=== PATIENT | female | born 1980 ===

== ENCOUNTER 2024-08-20 09:30 | Emergency (ER) | payer OTHER ==
[2024-08-20] MEDS ORDERED: NA CHLORIDE 0.9% 1,000 ML ONE (10:38)
--- NOTE | 2024-08-20 10:42 | RAD REPORT ---
Transvaginal Study Probe CLINICAL INDICATION: Female 43 years old ABD PAIN TECHNIQUE: Real-time ultrasonography of the pelvis was performed transvaginally. Color and spectral D oppler evaluation of the ovaries was performed. [id number]. COMPARISON: No prior exam. FINDINGS: UTERUS AND CERVIX: The uterus measures 7.9 x 3.7 x 4.9 cm (cervix to fundus x AP x transverse). The u terus is normal. No suspicious masses seen . Nabothian cysts noted, the largest 1.3 cm. IUD present in the expected location in the upper uterine canal. The endometrium is normal,5 mm thickness. RIGHT OVARY: Normal The right ovary measures 2.5 x 2 x 1.6 cm with volume of 4 mL. Normal color and s pectral Doppler evaluation of the right ovary.. LEFT OVARY: Normal The left ovary measures 1.9 x 1.4 x 1.5 cm with volume of 2.2 mL. Normal Color a nd spectral Doppler evaluation of the left ovary.. FREE FLUID: No free fluid. IMPRESSION: 1. IUD. 2. Bilateral ovarian blood flow.
[2024-08-20 11:08] LABS: Specific Gravity < 1.005 (1.005-1.030); Urine Bilirubin NEGATIVE (Negative); Urine Blood Negative (Negative); Urine Clarity Clear (Clear); Urine Color Colorless (Yellow); Urine Glucose NEGATIVE (Negative); Urine Ketones NEGATIVE (Negative); Urine Microscopic Reflex YN NO UMIC; Urine Nitrite NEGATIVE (Negative); Urine Protein NEGATIVE (Negative); Urine Urobilinogen Normal (Normal)
[2024-08-20 11:09] LABS: Absolute Basophils 0.1 K/uL (0-0.5); Absolute Eosinophils 0.3 K/uL (0-0.5); Absolute Lymphocytes (CBC) 2.2 K/uL (0.7-4.9); Absolute Monocytes 0.6 K/uL (0.1-1.3); Absolute Neutrophil 4.9 K/uL (1.8-8.0); Basophils % 0.7 % (0-1.3); Eosinophils % 3.2 % (0-4.4); Hematocrit 43.7 % (36.0-45.0); Hemoglobin 15.1 g/dL (12.0-15.0); Lymphocytes % 27.6 % (15.3-44.8); MCH 28.9 pg (27.0-35.0); MCHC 34.5 g/dL (32.0-36.0); MCV 83.9 fL (80-100); MPV 9.2 fL (7.6-11.3); Monocytes % 7.3 % (3.3-12.3); Neutrophils % 61.2 % (41.7-73.7); Nucleated Red Blood Cells % 0.2 % (0-0); Platelets 221 thou/uL (152-406); RBC Red Blood Cell Count 5.21 M/uL (3.86-4.86); Red Cell Distribution Width 14.1 % (12.1-15.2)
[2024-08-20 11:29] LABS: Anion Gap 9.6 mEq/L (5.0-15.0); Bilirubin Total 0.7 mg/dL (0.2-1.0); Potassium 3.6 mEq/L (3.5-5.1)
[2024-08-20 11:30] LABS: Albumin 3.9 g/dL (3.4-5.0); Protein, Total 7.9 g/dL (6.4-8.2)
--- NOTE | 2024-08-20 13:05 | RAD REPORT ---
EXAMINATION: Abdomen Pelvis W Contrast CLINICAL INDICATION: Female, 43 years old.ABD PAIN TECHNIQUE: CT abdomen and pelvis was performed, after the administration of IV contrast, [facility] Axial, sagittal and coronal reconstructions were obtained. One or more of the following dose reduction techniques were used: Automated exposure control, adjustment of the mA and/o r kV according to patient size, and/or iterative reconstruction. Unless otherwise specified, incidental findings do not require dedicated imaging follow-up. [id number]. COMPARISON: No prior exam. FINDINGS: LOWER CHEST: No acute process identified.No significant pericardial effusion. UPPER GI: No significant abnormality. LIVER: Several low-density liver lesions are noted which have benign imaging features and do not requ lorenzo specific follow-up. GALLBLADDER/BILE DUCTS: No biliary ductal dilatation.? PANCREAS: No mass, ductal dilation, or alisia-pancreatic fluid. SPLEEN: Unremarkable. ADRENALS: No adrenal masses. KIDNEYS AND URETERS: No hydronephrosis.No suspicious renal mass.No renal calculi.No ureteral calculi. ABDOMINAL AORTA AND OTHER VESSELS: Normal caliber aorta and IVC. PERITONEUM: No abnormal free fluid. No free air. LYMPH NODES: No pathologic lymphadenopathy. ABDOMINAL WALL: Unremarkable SMALL BOWEL/COLON: Small bowel has normal course and caliber. No colonic wall thickening or pericolon ic inflammatory changes.Normal appendix. URINARY BLADDER: Underdistended but grossly unremarkable. REPRODUCTIVE ORGANS: No pathologic process. IUD. 8 mm left ovarian lesion likely a small corpus lutea l cyst of no significance. MUSCULOSKELETAL: No acute or suspicious osseous abnormality. ADDITIONAL FINDINGS: None. IMPRESSION: No acute findings within the abdomen or pelvis. No appendicitis. No urinary tract calculi identified. No findings to explain left lower quadrant pain.
--- NOTE | 2024-08-20 13:33 | EDPHYS ---
Physician Documentation [facility] Name: Janie Genao Age: 43 yrs Sex: Female : 1980 Arrival Date: 08/20/2024 Time: 09:30 Bed 2 Private MD: Jaret Navarrete HPI: 08/20 10:40 This 43 yrs old Unknown Female presents to ER via Ambulatory with complaints of stefano Abdominal Pain - LT LOWER. 10:40 The patient presents with abdominal pain in the lower abdomen, in the left lower stefano quadrant. Onset: The symptoms/episode began/occurred 3 week(s) ago. The patient presents with urinary symptoms, frequency. Onset: The symptoms/episode began/occurred 14 day(s) ago. Modifying factors: The symptoms are alleviated by remaining still, the symptoms are aggravated by movement, pressure. Associated signs and symptoms: Pertinent positives: cramping, dysuria. Severity of symptoms: At their worst the symptoms were moderate, in the emergency department the symptoms are unchanged. The patient is sexually active, reportedly has a single partner. 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 - Infectious Disease History:: Denies. - Social history:: Smoking status: unknown. ROS: 10:42 Constitutional: Negative for fever, chills, and weight loss, Eyes: Negative for injury, stefano pain, redness, and discharge, ENT: Negative for injury, pain, and discharge, Neck: Negative for injury, pain, and swelling, Cardiovascular: Negative for chest pain, palpitations, and edema, Respiratory: Negative for shortness of breath, cough, wheezing, and pleuritic chest pain, Back: Negative for injury and pain, : Negative for injury, bleeding, discharge, and swelling, MS/Extremity: Negative for injury and deformity, Skin: Negative for injury, rash, and discoloration, Neuro: Negative for headache, weakness, numbness, tingling, and seizure, Psych: Negative for depression, anxiety, suicide ideation, homicidal ideation, and hallucinations, Allergy/Immunology: Negative for hives, rash, and allergies, Endocrine: Negative for neck swelling, polydipsia, polyuria, polyphagia, and marked weight changes, Hematologic/Lymphatic: Negative for swollen nodes, abnormal bleeding, and unusual bruising, 10:42 Abdomen/GI: Positive for abdominal pain, of the left lower quadrant, Exam: 10:42 Constitutional: This is a well developed, well nourished patient who is awake, alert, stefano and in no acute distress. Head/Face: Normocephalic, atraumatic. Eyes: Pupils equal round and reactive to light, extra-ocular motions intact. Lids and lashes normal. Conjunctiva and sclera are non-icteric and not injected. Cornea within normal limits. Periorbital areas with no swelling, redness, or edema. ENT: Nares patent. No nasal discharge, no septal abnormalities noted. Tympanic membranes are normal and external auditory canals are clear. Oropharynx with no redness, swelling, or masses, exudates, or evidence of obstruction, uvula midline. Mucous membranes moist. Neck: Trachea midline, no thyromegaly or masses palpated, and no cervical lymphadenopathy. Supple, full range of motion without nuchal rigidity, or vertebral point tenderness. No Meningismus. Chest/axilla: Normal chest wall appearance and motion. Nontender with no deformity. No lesions are appreciated. Cardiovascular: Regular rate and rhythm with a normal S1 and S2. No gallops, murmurs, or rubs. Normal PMI, no JVD. No pulse deficits. Respiratory: Lungs have equal breath sounds bilaterally, clear to auscultation and percussion. No rales, rhonchi or wheezes noted. No increased work of breathing, no retractions or nasal flaring. Back: No spinal tenderness. No costovertebral tenderness. Full range of motion. Skin: Warm, dry with normal turgor. Normal color with no rashes, no lesions, and no evidence of cellulitis. MS/ Extremity: Pulses equal, no cyanosis. Neurovascular intact. Full, normal range of motion., bilateral aka Neuro: Awake and alert, GCS 15, oriented to person, place, time, and situation. Cranial nerves II-XII grossly intact. Motor strength 5/5 in all extremities. Sensory grossly intact. Cerebellar exam normal. Normal gait. Psych: Awake, alert, with orientation to person, place and time. Behavior, mood, and affect are within normal limits. 10:42 Abdomen/GI: Inspection: abdomen appears normal, Bowel sounds: normal, Palpation: mild abdominal tenderness, in the left lower quadrant, Liver: no appreciated palpable abnormalities, Hernia: not appreciated, Vital Signs: 10:34 BP 114 / 71; Pulse 69; Resp 16; Temp 97.6(O); Pulse Ox 100% on R/A; Weight 64.41 kg; cm10 Height 5 ft. 9 in. ; Pain 2/10; 11:00 BP 106 / 67; Pulse 60; Resp 16; Pulse Ox 100% on R/A; cm10 12:00 BP 105 / 77; Pulse 63; Resp 16; Pulse Ox 100% on R/A; cm10 12:30 BP 104 / 75; Pulse 63; Resp 16; Pulse Ox 100% ; cm10 13:30 BP 109 / 77; Pulse 63; Resp 16; Pulse Ox 100% ; cm10 10:34 Body Mass Index 20.97 (64.41 kg, 175.26 cm) cm10 10:34 Pain Scale: Adult cm10 MDM: 09:38 Medical Screening Exam initiated stefano 10:43 Differential diagnosis: kidney stone, nonspecific abdominal pain, ovarian cyst, urinary stefano tract infection, bowel obstruction, diverticulitis, Endometriosis, Hepatitis, non-specific abd pain. Data reviewed: vital signs, nurses notes, lab test result(s), radiologic studies, CT scan, ultrasound. Consideration of Admission/Observation Escalation of care including admission/observation considered. I considered the following discharge prescriptions or medication management in the emergency department Medications were administered in the Emergency Department. See MAR. Independent interpretation of the following test(s) in the Emergency Department CT Scan: My interpretation is ct abd pel. Radiology Department Ultrasound: My interpretation is vag probe. Test considered but Not performed: MRI: no mri. Care significantly affected by the following chronic conditions: iud, no sig his, mom hx ovarian cancer. 08/20 09:40 Order name: CBC with Diff; Complete Time: 11:20 [facility] 08/20 09:40 Order name: CMP; Complete Time: 12:03 [facility] 08/20 09:40 Order name: Lipase; Complete Time: 12:03 [facility] 08/20 09:40 Order name: UA Rfx Ruben Cult if indicated; Complete Time: 11:20 [facility] 08/20 09:57 Order name: CA 125 Antigen [facility] 08/20 09:57 Order name: CA 19-9 Antigen [facility] 08/20 09:57 Order name: Carcinoembryonic Antigen; Complete Time: 12:03 [facility] 08/20 09:57 Order name: Miscellaneous Test Lab; Complete Time: 12:56 [facility] 08/20 09:40 Order name: CT Abd/Pelvis - PO and IV Contrast; Complete Time: 13:32 [facility] 08/20 09:40 Order name: US Transvaginal Study (Probe); Complete Time: 11:20 [facility] Administered Medications: 10:35 Not Given (Patient Refused): [id number] mg IVP once cm10 10:35 Not Given (Patient Refused): ondansetron 4 mg IVP once; over 2 minutes cm10 11:01 Drug: NS 0.9% IV 1000 ml IV at 1000 ml once; to be given as a bolus over 60 minutes cm10 Route: IV; Rate: 1000 ml; Site: right forearm; 12:01 Follow up: Response: No adverse reaction; IV Status: Completed infusion; IV Intake: cm10 1000ml Disposition Summary: 08/20/24 13:32 Discharge Ordered Notes: Location: Home stefano Problem: new stefano Symptoms: have improved stefano Condition: Stable stefano Diagnosis - Abdominal tenderness stefano - Abdominal pain, unspecified stefano Followup: stefano - With: Private Physician - When: 2 - 3 days - Reason: Recheck today's complaints, Continuance of care, Re-evaluation by your physician Followup: stefano - With: Apple Cerrato MD - When: 2 - 3 days - Reason: Recheck today's complaints, Re-evaluation by your physician Discharge Instructions: - Discharge Summary Sheet stefano - Abdominal Pain, Adult stefano - Pelvic Pain, Female stefano - Pelvic Pain, Female, [id number] stefano - Abdominal Pain, Adult, [id number] [facility] Forms: - Medication Reconciliation Form stefano - Antibiotic Education stefano - Prescription Opioid Use stefano - Patient Portal Instructions stefano - Leadership Thank You Letter [facility] Prescriptions: - diclofenac sodium 25 mg Oral tablet, delayed release (enteric coated) - take 1 tablet ORAL route 3 times per day; 30 tablet; Refills: 0, Product stefano Selection Permitted Signatures: Dispatcher [employer] Jaret Jaeger MD MD cha Martinez, Clarissa RN RN cm10 Corrections: (The following items were deleted from the chart) 09: Abdomen Pelvis W Con+CT.RAD.BRZ ordered. EDMS EDMS :41 Transvaginal Study (Probe)+US.RAD.BRZ ordered. EDMS EDMS
--- NOTE | 2024-08-20 13:33 | ER ---
Nurse's Notes [facility] Name: Janie Genao Age: 43 yrs Sex: Female : 1980 Arrival Date: 08/20/2024 Time: 09:30 Bed 2 Private MD: Diagnosis: Abdominal tenderness;Abdominal pain, unspecified Presentation: 08/20 10:34 Chief complaint: Patient states: LLQ abdominal pain onset "a while back". Pt denies any cm10 nausea, vomiting, or diarrhea. Coronavirus screen: Client denies travel out of the [place] in the last 14 days. Ebola Screen: Patient denies travel to an Ebola-affected area in the 21 days before illness onset. Initial Sepsis Screen: Does the patient meet any 2 criteria? No. Patient's initial sepsis screen is negative. Does the patient have a suspected source of infection? No. Patient's initial sepsis screen is negative. Risk Assessment: Do you want to hurt yourself or someone else? Patient reports no desire to harm self or others. Onset of symptoms is unknown. 10:34 Method Of Arrival: Ambulatory cm10 10:34 Acuity: OTONIEL 3 cm10 Triage Assessment: 10:45 General: Appears in no apparent distress. comfortable, Behavior is calm, cooperative. cm10 Pain: Complains of pain in left lower quadrant Pain currently is 2 out of 10 on a pain scale. Neuro: No deficits noted. Level of Consciousness is awake, alert, obeys commands, Oriented to person, place, time, situation, Appropriate for age. Cardiovascular: Patient's skin is warm and dry. Respiratory: No deficits noted. Airway is patent Respiratory effort is even, unlabored, Respiratory pattern is regular, symmetrical. GI: Abdomen is flat, non-distended, Reports lower abdominal pain. Musculoskeletal: No deficits noted. Range of motion: intact in all extremities. 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 - Infectious Disease History:: Denies. - Social history:: Smoking status: unknown. Screenin:03 [facility] ED Fall Risk Assessment (Adult) History of falling in the last 3 months, cm10 including since admission No falls in past 3 months (0 pts) Confusion or Disorientation No (0 pts) Intoxicated or Sedated No (0 pts) Impaired Gait No (0 pts) Mobility Assist Device Used No (0 pt) Altered Elimination No (0 pt) Score/Fall Risk Level 0 - 2 = Low Risk Oriented to surroundings, Maintained a safe environment, Hourly rounding (assess needs \\T\\ fall precautionary measures) done. Abuse screen: Denies threats or abuse. Denies injuries from another. Nutritional screening: No deficits noted. Tuberculosis screening: No symptoms or risk factors identified. Assessment: 13:23 Reassessment: Patient appears in no apparent distress at this time. Patient and/or cm10 family updated on plan of care and expected duration. Pain level reassessed. Patient is alert, oriented x 3, equal unlabored respirations, skin warm/dry/pink. Vital Signs: 10:34 BP 114 / 71; Pulse 69; Resp 16; Temp 97.6(O); Pulse Ox 100% on R/A; Weight 64.41 kg; cm10 Height 5 ft. 9 in. ; Pain 2/10; 11:00 BP 106 / 67; Pulse 60; Resp 16; Pulse Ox 100% on R/A; cm10 12:00 BP 105 / 77; Pulse 63; Resp 16; Pulse Ox 100% on R/A; cm10 12:30 BP 104 / 75; Pulse 63; Resp 16; Pulse Ox 100% ; cm10 13:30 BP 109 / 77; Pulse 63; Resp 16; Pulse Ox 100% ; cm10 10:34 Body Mass Index 20.97 (64.41 kg, 175.26 cm) cm10 10:34 Pain Scale: Adult cm10 ED Course: 09:38 Patient arrived in ED. [email or web address] 09:38 Jaret Verma MD is Attending Physician. stefano 09:50 Mitzi Rendon, MARIA TERESA is Primary Nurse. cm10 10:29 US Transvaginal Study (Probe) In Process Unspecified. EDMS 10:35 Triage completed. cm10 10:35 Arm band placed on right wrist. Patient placed in an exam room, on a stretcher, on cm10 pulse oximetry. 11:01 Miscellaneous Test Lab Sent. cm10 11:01 CA 125 Antigen Sent. cm10 11:01 CA 19-9 Antigen Sent. cm10 11:01 Carcinoembryonic Antigen Sent. cm10 11:01 UA Rfx Ruben Cult if indicated Sent. cm10 11:01 Lipase Sent. cm10 11:01 CMP Sent. cm10 11:01 CBC with Diff Sent. cm10 11:01 Initial lab(s) drawn, by sd, sent to lab. Urine collected: clean catch specimen, clear. cm10 Inserted saline lock: 22 gauge in right forearm, using aseptic technique. Blood collected. Flushed with 10 mL NS. 11:03 Patient has correct armband on for positive identification. Bed in low position. Call cm10 light in reach. Side rails up X 1. Pulse ox on. NIBP on. 11:03 Warm blanket given. cm10 12:56 CT Abd/Pelvis - PO and IV Contrast In Process Unspecified. [facility] 13:32 Apple Cerrato MD is Referral Physician. [facility] 13:45 Provided Education on: Follow-up instructions. 10 13:45 No provider procedures requiring assistance completed. IV discontinued, intact, cm10 bleeding controlled, No redness/swelling at site. Pressure dressing applied. Administered Medications: 10:35 Not Given (Patient Refused): mg IVP once cm10 10:35 Not Given (Patient Refused): ondansetron 4 mg IVP once; over 2 minutes cm10 11:01 Drug: NS 0.9% IV 1000 ml IV at 1000 ml once; to be given as a bolus over 60 minutes cm10 Route: IV; Rate: 1000 ml; Site: right forearm; 12:01 Follow up: Response: No adverse reaction; IV Status: Completed infusion; IV Intake: cm10 1000ml Medication: 11:03 VIS not applicable for this client. cm10 Intake: 12:01 IV: 1000ml; Total: 1000ml. 10 Outcome: 13:32 Discharge ordered by . [facility] 13:45 Discharged to home ambulatory, 10 13:45 Condition: good 13:45 Discharge instructions given to patient, Instructed on discharge instructions, follow up and referral plans. medication usage, Demonstrated understanding of instructions, follow-up care, medications, Prescriptions given X 1, 13:46 Patient left the ED. cm10 Signatures: Dispatcher [employer] [facility] Jaret Verma MD MD stefano Justice, Mitzi, RN RN cm10 Sena Cleary 3
[2024-08-20 13:50] VITALS: TEMP 97.6; O2SAT 100
[2024-08-20 13:57] VITALS: BP 109/77
== END 2024-08-20 13:46 | disposition home or self-care (01) ==
LOC: ER 09:30
DX: R10.814 Left lower quadrant abdominal tenderness (principal); R10.32 Left lower quadrant pain; Z98.82 Breast implant status
CPT/HCPCS: 85025; 36415; 82378; 81003; 83690; 80053; 86301; 86304; 74177; 76830; J7030; 96360; 99284